=== PATIENT | female | born 1960 | race Caucasian/White ===

== ENCOUNTER → 2022-05-14 10:20 | Outpatient (CLI) | payer OTHER, SELFPAY ==
[2022-05-14 17:54] LABS: Basophils % 0.5 % (0.1-2.0); Eosinophils # 0.1 K/mm3 (0.0-0.4); Eosinophils % 1.7 % (0.1-12.0); Hematocrit 44.9 % (37.0-47.0); Mean Corpuscular HGB Conc 31.1 g/dL (31.8-35.4); Mean Corpuscular Hemoglobin 30.9 pg (27.0-31.2); Mean Corpuscular Volume 99.3 fl (81-99); Mean Platelet Volume 8.7 fl (7.4-10.4); Monocytes # 0.5 K/mm3 (0.1-1.0); Monocytes % 6.1 % (1.7-9.3); Neutrophils # 4.8 K/mm3 (1.8-7.8); Neutrophils % 64.7 % (37.0-80.0); Platelet Count 259 K/mm3 (142-424); Red Blood Count 4.52 M/mm3 (4.20-5.40); Red Cell Distribution Width 14.4 % (11.5-17.5); White Blood Count 7.5 K/mm3 (4.8-10.8)
[2022-05-14 19:14] LABS: Alanine Aminotransferase 129 U/L (12-78); Albumin Level 4.2 g/dl (3.5-5.0); Albumin/Globulin Ratio 1.5 (1.1-1.8); Alkaline Phosphatase 130 U/L (38-126); Anion Gap 11.7 mEq/L (5-15); Aspartate Amino Transferase 99 U/L (14-36); Bilirubin,Total 0.2 mg/dl (0.2-1.3); Blood Urea Nitrogen 15 mg/dl (7-17); Calcium 10.1 mg/dl (8.4-10.2); Carbon Dioxide 28 mmol/L (22.0-30.0); Chloride 102 mmol/L (98-107); Estimated Glomerular Filt Rate 73 ml/min (>60); GFR (African American) 89 ML/MIN (>60); Globulin 2.8 g/dL (1.3-3.2); Glucose 94 mg/dl (74-100); Potassium 4.7 mmoL/L (3.5-5.1); Sodium 137 mmol/L (136-145)
[2022-05-14 19:44] LABS: Thyroid Stimulating Hormone 1.72 uIU/mL (0.465-4.68)
== END ==
PROVIDERS: PCP Nurse Practitioner Family; Visit Provider Nurse Practitioner Family
DX: R53.83 Other fatigue (principal)
CPT/HCPCS: 80053; 84443; 85025

== ENCOUNTER → 2022-06-12 08:21 | Outpatient (CLI) | payer OTHER, SELFPAY ==
--- NOTE | 2022-06-12 08:21 | US_ITS ---
FINAL REPORT CLINICAL HISTORY: elevated liver enzymes FINDINGS: Sonographic images of the right upper quadrant were obtained. The pancreas is partially obscured. There is increased echogenicity the in the liver consistent with fatty infiltration. The gallbladder appears normal without evidence of gallstones.There is no evidence of biliary ductal dilatation.The common duct measures 4mm. Limited images of the right kidney are unremarkable. IMPRESSION: Fatty liver, otherwise unremarkable exam. Reviewed, Interpreted and Dictated by Сергей Weinstein III, MD Transcribed by Maggie Murrieta Authenticated and [facility]
== END ==
PROVIDERS: PCP Nurse Practitioner Family; Visit Provider Nurse Practitioner Family
DX: R74.8 Abnormal levels of other serum enzymes (principal)
CPT/HCPCS: 76705

== ENCOUNTER 2023-07-10 16:17 | Outpatient (CLI) | payer OTHER, SELFPAY ==
[2023-07-10 16:33] LABS: Chloride 104 mmol/L (98-107); Sodium 139 mmol/L (136-145)
[2023-07-10 16:35] LABS: Alanine Aminotransferase 140 U/L (12-78); Alkaline Phosphatase 103 U/L (38-126); Amylase 49 U/L (30-110); Aspartate Amino Transferase 114 U/L (14-36); Bilirubin,Total 0.4 mg/dl (0.2-1.3); Blood Urea Nitrogen 11 mg/dl (7-17); Carbon Dioxide 30 mmol/L (22.0-30.0); Estimated Glomerular Filt Rate 85 ml/min (>60); GFR (African American) 103 ML/MIN (>60)
[2023-07-10 16:36] LABS: Albumin Level 4.1 g/dl (3.5-5.0); Albumin/Globulin Ratio 1.5 (1.1-1.8); Calcium 9.3 mg/dl (8.4-10.2); Chol/HDL Ratio 4.9 (1-3.5); Cholesterol 229 mg/dl (140-200); Globulin 2.8 g/dL (1.3-3.2); Glucose 97 mg/dl (74-100); HDL Cholesterol 47 mg/dl (40-60); Lipase 58 U/L (23-300); Total Protein,Serum 6.9 g/dl (6.3-8.2); Triglycerides 157 mg/dl (30-150); VLDL Cholesterol 31 mg/dL (0-40)
[2023-07-10 16:44] LABS: Basophils % 0.4 % (0.1-2.0); Eosinophils # 0.1 K/mm3 (0.0-0.4); Eosinophils % 1.8 % (0.1-12.0); Hematocrit 44.3 % (37.0-47.0); Hemoglobin 14.9 g/dL (12.2-16.2); Lymphocytes # 1.8 K/mm3 (0.7-4.5); Lymphocytes % 27.4 % (10-50); Mean Corpuscular HGB Conc 33.5 g/dL (31.8-35.4); Mean Corpuscular Hemoglobin 32.6 pg (27.0-31.2); Mean Corpuscular Volume 97.1 fl (81-99); Mean Platelet Volume 8.3 fl (7.4-10.4); Monocytes # 0.4 K/mm3 (0.1-1.0); Monocytes % 5.9 % (1.7-9.3); Neutrophils # 4.2 K/mm3 (1.8-7.8); Neutrophils % 64.5 % (37.0-80.0); Platelet Count 236 K/mm3 (142-424); Red Blood Count 4.56 M/mm3 (4.20-5.40); Red Cell Distribution Width 13.5 % (11.5-17.5); White Blood Count 6.5 K/mm3 (4.8-10.8)
[2023-07-10 16:56] LABS: Direct LDL Cholesterol 127.71 mg/dL (100-129)
[2023-07-10 17:16] LABS: T4 (Thyroxine) 5.7 ug/dl (5.53-11.0); Triiodothryronine (T3) Uptake 36 % (23.5-40.5)
[2023-07-10 17:17] LABS: Free T4 (Free Thyroxine) 0.88 ng/dl (0.78-2.19)
[2023-07-10 17:30] LABS: Thyroid Stimulating Hormone 1.54 uIU/mL (0.465-4.68)
[2023-07-10 20:29] LABS: Hemoglobin A1C 5.4 % (4.0-6.0)
== END 2023-07-10 23:59 ==
LOC: LAB.DROPOF 16:17
PROVIDERS: PCP Nurse Practitioner Family; Visit Provider Nurse Practitioner Family
DX: R53.83 Other fatigue (principal); R06.02 Shortness of breath; R00.2 Palpitations; F32.A Depression, unspecified
CPT/HCPCS: 80053; 80061; 82150; 83036; 83690; 84436; 84439; 84443; 84479; 85025; 86140

== ENCOUNTER 2023-07-16 15:55 | Outpatient (CLI) | payer OTHER, SELFPAY | END 2023-07-16 23:59 | LOC: RT 15:56 | PROVIDERS: PCP Family Medicine; Visit Provider Physician Assistant | DX: R00.2 Palpitations (principal); R06.02 Shortness of breath; R07.89 Other chest pain; R53.83 Other fatigue; E78.5 Hyperlipidemia, unspecified; E66.01 Morbid (severe) obesity due to excess calories; Z68.42 Body mass index [BMI] 45.0-49.9, adult | CPT/HCPCS: 93270 ==

== ENCOUNTER 2023-08-04 08:22 | Outpatient (CLI) | payer OTHER, SELFPAY ==
--- NOTE | 2023-08-04 08:37 | CA_ITS ---
FINAL REPORT TECHNIQUE: Color Doppler, duplex Doppler and bettencourt scale sonography of the bilateral neck arterial vasculature was performed. Velocities were measured in the carotid arteries. Stenosis evaluation based on the validated velocity criteria. CLINICAL HISTORY: DIZZINESS FINDINGS: The peak systolic velocity of the right common carotid artery is 98 cm/s. The peak systolic velocity of the right internal carotid artery is 98 cm/s and end diastolic velocity 23 cm/s. The ICA/CCA ratio is 1.2. A small amount of plaque is present. The right external carotid artery is patent. The right vertebral artery is patent with antegrade flow. The peak systolic velocity of the left common carotid artery is 92 cm/s. The peak systolic velocity of the left internal carotid artery is 102 cm/s and end diastolic velocity 30 cm/s. The ICA/CCA ratio is 1.0. A small amount of plaque is present. The left external carotid artery is patent.The left vertebral artery is patent with antegrade flow. IMPRESSION: Less than 50% bilateral carotid stenoses. Bilateral patent vertebral arteries with antegrade flow. If indicated, CTA or MRA could further evaluate. Reviewed, Interpreted and Dictated by Сергей Weinstein III, MD Transcribed by Priya Farias Authenticated and [facility]
--- NOTE | 2023-08-04 08:37 | CA_ITS ---
APPROVED REPORT EXAM: Comprehensive 2D, Doppler, and color-flow Echocardiogram Director [employer]: Tori Penn RT(R) Ht: 5 ft 3 in Wt: 270lbs BSA: 2.20 BP: 115/62 mmHg Indications: CP, ex smoker, palpitations, fatigue, SOB, obesity, hyperlipidemia, family history of HD, dizziness, anxiety, GERD. 2D Dimensions LA Volume 22.10 mL LA Volume Index 10.05 mL/m2 (M/F) 16-34 EF AP4 58.50 % GL Strain -11.0 % M-Mode Dimensions RVDd 2.27 cm (0.9-2.6) LA Diam 3.24 cm (1.9-4.0) LVDd 4.66 cm (3.5-5.7) LVDs 3.37 cm (3.5-5.7) IVSd 0.72 cm (0.6-1.1) PWd 0.72 cm (0.6-1.1) EF (Teich) 53.70% FS 27.70% EDV (Teich) 100.30 mL ESV (Teich) 46.40 mL LV Diastology E Decel Time 140 (160-240 msec) E/A Ratio 0.9 Mitral Valve MV E Max Rod. 61.0 (40-130 cm/s) MV A Velocity 67.0 (40-130 cm/s) E/A Ratio 0.91 MV PHT 41.0 ms Left Ventricle The left ventricle is normal size. The left ventricular systolic function is normal. The left ventricular ejection fraction is within the normal range. There is normal left ventricular wall thickness. There is normal LV segmental wall motion. The left ventricular diastolic function is normal. LVEF is 55%. Right Ventricle The right ventricle is normal size. The right ventricular systolic function is normal. Atria The left atrium size is normal. The right atrium size is normal. The interatrial septum is not well-visualized. Aortic Valve The aortic valve opens well. There is no aortic valvular stenosis. No aortic regurgitation is present. Mitral Valve The mitral valve is normal in structure. No evidence of mitral valve stenosis. There is no mitral valve regurgitation noted. Tricuspid Valve The tricuspid valve leaflets are thin and pliable. Trace tricuspid regurgitation. There is insufficient TR jet to estimate RVSP. Pulmonic Valve The pulmonary valve is normal in structure. Trace pulmonic regurgitation. Great Vessels The aortic root is normal in size. The ascending aorta is normal in size. IVC is normal in size and collapses >50% with inspiration. Pericardium There is no pericardial effusion. Other Information Study Quality: Fair Conclusion Normal biventricular systolic function. No significant valvular stenosis or regurgitation. Electronically signed by : Adriana Perez MD 08/08/2023 19:42:48
[2023-08-04 09:02] LABS: Anion Gap 11.2 mEq/L (5-15); Blood Urea Nitrogen 11 mg/dl (7-17); Calcium 9.6 mg/dl (8.4-10.2); Carbon Dioxide 30 mmol/L (22.0-30.0); Chloride 104 mmol/L (98-107); Estimated Glomerular Filt Rate 73 ml/min (>60); GFR (African American) 88 ML/MIN (>60); Glucose 108 mg/dl (74-100); Potassium 4.2 mmoL/L (3.5-5.1); Sodium 141 mmol/L (136-145)
== END 2023-08-04 23:59 ==
PROVIDERS: PCP Family Medicine; Visit Provider Physician Assistant
DX: R06.00 Dyspnea, unspecified (principal); R07.89 Other chest pain; R00.2 Palpitations; R42 Dizziness and giddiness; E78.5 Hyperlipidemia, unspecified; R53.83 Other fatigue; E66.01 Morbid (severe) obesity due to excess calories; Z68.42 Body mass index [BMI] 45.0-49.9, adult
CPT/HCPCS: 36415; 80048; 93306; 93880

== ENCOUNTER 2023-08-18 08:20 | Outpatient (CLI) | payer OTHER, SELFPAY ==
[2023-08-18] VITALS (7 sets, daily range): BP systolic 98–125; BP diastolic 58–76; PULSE 60–94; RESP 18; O2SAT 97–99; BMI 47.6
--- NOTE | 2023-08-18 08:20 | CT_ITS ---
APPROVED REPORT Consumer Safety Officer: CLINICAL INDICATION Chest Pain TECHNIQUE Image Acquisition: A 128 slice MDCT scanner (Mopappa View) was used for data acquisition. A noncontrast coronary calcium scan was performed. A CT attenuation threshold of 130 Hounsfield units (HU) was used for the detection of calcium in contiguous voxels of 1 sq mm in area to be counted as individual lesions. Bolus tracking in the ascending aorta with a threshold of 180 HU was performed. Immediately afterwards, ECG synchronized cardiac CT was then performed from the cardiac base to apex using retrospective gating with ECG tube current modulation. A total of 85 mL of Isovue 370 mg/mL contrast medium was administered at 5 mL/sec followed by a saline flush using a biphasic injection protocol. A tube voltage of 120 KVp was used. The patient received the following medications prior to the cardiac CT. 75 mg of oral metoprolol 15 mg of oral ivabradine 0.8 mg of sublingual nitroglycerin The average heart rate at the time of acquisition was 62 bpm and regular. Image Reconstruction Transaxial images were reconstructed at 0.67 mm slide thickness. Data was reviewed interactively on an advanced workstation capable of 2 and 3-dimensional displays in all conventional reconstruction formats, including multiplanar reformations, maximum intensity projections, curved multiplanar reformations, and volume rendered reconstructions. When applicable, selected routine images describing the relevant coronary anatomy and pathology were saved and sent to PACS. Complications None Technical Quality Overall image quality was good. Coronary artery opacification was adequate. Total DLP (Dose-Length Product) is 2810.6 mGy-cm. The reported value represents the total of one or more individual components during the CT acquisition of this date and at this time, and as such, the same value may appear in more than one CT report depending on the interpreting/reporting physicians. COMPARISON None FINDINGS CT Coronary Calcium Scoring LMA (Left Main Artery) = 0 LAD (Left Anterior Descending) = 6 LCX (Left Coronary Circumflex) = 0 RCA (Right Coronary Artery) = 0 Total Calcium Score = 6 using the AJ-130 method. The observed calcium score of 6 is at 66th percentile for subjects of the same age, sex, and race/ethnicity. The interpretation of the calcium heart score is based on the following continuum*: 0 = no calcified plaque detected (risk of coronary artery disease is very low ??? less than 5%) 1-10 = calcium detected in extremely minimal levels (risk of coronary diseases is still low ??? less than 10%) 11-100 = mild levels of plaque detected with certainty (mild or minimal narrowing of heart arteries is likely) 101-400 = definite,at least moderate levels of plaque detected (relatively high risk of a heart attack within 3-5 years) >401-999 = extensive levels of plaque detected (high risk of heart attack, high levels of vascular disease are present, high likelihood of at least one significant coronary narrowing) *The calcium heart score quantifies the burden of coronary calcification/plaque in the coronary arteries. The calcium heart score is not able to evaluate the presence or burden of non-calcified (i.e. soft) plaque. There is no identifiable calcification in the aortic valve, mitral annulus or mitral valve, pericardium, or myocardium. Coronary CT Angiography The coronary arterial system is left dominant. Quantitative Stenosis Grading: Left Main (LM): The left main originates normally from the left sinus of Valsalva. The LM trifurcates into the left anterior descending artery, ramus intermedius, and left circumflex artery. The LM is patent with no evidence of atherosclerosis. Left Anterior Descending (LAD) and Diagonal Branches: The LAD gives off 2 diagonal branches. There is mild calcification in the proximal LAD at the bifurcation with the diagonal branch, but without evidence of luminal stenosis. There is no evidence of LAD-myocardial bridge. Ramus-intermedius (RI): The RI is patent. Left Circumflex (LCX) and Obtuse Marginals (OM): The LCX gives off 2 Obtuse Marginal (OM) branches. The LCX gives rise to the posterolateral branch. The LCX and its branches are patent with no evidence of atherosclerosis. Right Coronary Artery (RCA): The RCA is a small caliber vessel. The RCA originates normally from the right sinus of Valsalva. The RCA and its branches are patent with no evidence of atherosclerosis. Non-Coronary Cardiac Findings: Analysis of the left ventricular (LV) structure and function was performed after 3-D reconstruction of the LV from axial images, with user-corrected automatic contouring for assessment of LV volumes and user-defined reconstruction from oblique planes for measurement of 3-D cardiac structure and function. -The left ventricle systolic function is normal (LVEF 61%) -There is no left atrial appendage filling defect. Two right pulmonary veins and two left pulmonary veins drain normally into the left atrium. -No pericardial thickening or calcification. -Central and branch pulmonary arteries in the [id number] are unremarkable. -Thoracic aorta within the visualized thoracic aortic-branches in the [id number] is unremarkable. Extracardiac Structures No significant extra-cardiac findings. Note, however, that this study is focused on the cardiac findings. IMPRESSION -Presence of coronary calcification with an Agatston score = 6 using the AJ-130 method. -The observed calcium score of 6 is at 66th percentile for subjects of the same age, sex, and race/ethnicity. -No evidence of significant flow-limiting atherosclerosis of the coronary arteries. -CAD-RADS 1. Management recommendations per ACC/AHA guidelines*, as clinically appropriate. *Recommendations: CAD RADS 0: Reassurance. Consider non-atherosclerotic causes of chest pain. CAD RADS 1: Consider non-atherosclerotic causes of chest pain. Consider preventive therapy and risk factor modification. CAD RADS 2: Consider non-atherosclerotic causes of chest pain. Consider preventive therapy and risk factor modification, particularly for patients with nonobstructive plaque in multiple segments. CAD RADS 3: Consider further functional testing. Consider symptom-guided anti-ischemic and preventive pharmacotherapy as well as risk factor modification per published guideline statements. CAD RADS 4A: Consider further functional testing or invasive coronary angiography with revascularization per published guideline statements. Consider symptom-guided anti-ischemic and preventive pharmacotherapy as well as risk factor modification per published guideline statements. CAD RADS 4B: Invasive coronary angiography recommended with revascularization per published guideline statements. Consider symptom-guided anti-ischemic and preventive pharmacotherapy as well as risk factor modification per published guideline statements. CAD RADS 5: Consider invasive angiography and/or viability assessment with revascularization per published guideline statements. Consider symptom-guided anti-ischemic and preventive pharmacotherapy as well as risk factor modification per published guideline statements. CRITICAL RESULT None COMMUNICATION Per this written report The coronary and cardiac findings of this CCTA were reviewed, reported, and signed by Hai Perez MD ([employer]) Conclusion Electronically signed by : Adriana Perez MD 08/25/2023 13:09:57
[2023-08-18] MEDS: METOPROLOL TARTRATE 50MG TABLET *IVABRADINE+METOPROLOL REGIMINE 50 MG PO (08:35)
[2023-08-18] MEDS: METOPROLOL TARTRATE 25MG TABLET *IVABRADINE+METOPROLOL REGIMINE 25 MG PO (08:35)
[2023-08-18] MEDS: IVABRADINE HCL 7.5MG TABLET *IVABRADINE+METOPROLOL REGIMINE 15 MG PO (08:35)
[2023-08-18] MEDS: METOPROLOL TARTRATE 5MG/5ML VIAL *IVABRADINE+METOPROLOL REGIMINE 5 MG IV ×2 (09:34→09:42)
[2023-08-18] MEDS: NITROGLYCERIN 0.4MG SL TABLET 0.800000000000000044 MG SL (09:34)
[2023-08-18] MEDS: SODIUM CHLORIDE 0.9% 10ML SYR (RAD ONLY) 10 ML IV (09:56)
[2023-08-18] MEDS: 0.9 % SODIUM CHLORIDE 50 ML VIAL IV (09:56)
[2023-08-18] MEDS: IOPAMIDOL-370 (76%);100ML BOTTLE 85 ML IV (09:56)
== END 2023-08-18 10:34 | disposition home or self-care (01) ==
PROVIDERS: PCP Family Medicine; Visit Provider Physician Assistant
DX: R06.00 Dyspnea, unspecified (principal); R07.89 Other chest pain; R00.2 Palpitations; E78.5 Hyperlipidemia, unspecified; R53.83 Other fatigue; E66.01 Morbid (severe) obesity due to excess calories; Z68.42 Body mass index [BMI] 45.0-49.9, adult
CPT/HCPCS: 75571; 75574; Q9967

== ENCOUNTER 2024-04-06 09:07 | Emergency (ER) | payer OTHER, SELFPAY ==
[2024-04-06] VITALS (8 sets, daily range): BP systolic 118–132; BP diastolic 57–74; PULSE 80–99; RESP 16–20; TEMP 36.6–36.8; O2SAT 94–99; BMI 47.8
--- NOTE | 2024-04-06 09:32 | CT_ITS ---
FINAL REPORT TECHNIQUE: Thin section axial CT with IV contrast supplemented with multiplanar reconstruction under CT angiogram protocol. 3-D reconstructions were performed. This study was performed with techniques to keep radiation doses as low as reasonably achievable (ALARA). Individualized dose reduction techniques using automated exposure control or adjustment of mA and/or kV according to the patient''s size were employed. CLINICAL HISTORY: Dizziness, headache, vision changes FINDINGS: The distal vertebral, basilar and distal internal carotid arteries have an unremarkable appearance. No aneurysm is seen. Major intracranial vessels are patent without significant stenosis. Reviewed, Interpreted and Dictated by Сергей Weinstein III, MD Transcribed by Noris Young Authenticated and [facility]
--- NOTE | 2024-04-06 09:32 | CT_ITS ---
FINAL REPORT TECHNIQUE: Thin section axial CT with IV contrast supplemented with multiplanar reconstruction under CT angiogram protocol. This study was performed with techniques to keep radiation doses as low as reasonably achievable (ALARA). Individualized dose reduction techniques using automated exposure control or adjustment of mA and/or kV according to the patient''s size were employed. NASCET criteria was utilized during interpretation. CLINICAL HISTORY: Dizziness, headache, vision changes FINDINGS: Aortic arch: Arch shows no significant narrowing. Great vessel origins are widely patent. Right carotid: No significant stenosis is seen of the cervical common or internal carotid artery. Left carotid: No significant stenosis is seen of the cervical common or internal carotid artery. Vertebral: The vertebral arteries are codominant. No significant stenosis is present. IMPRESSION: No significant stenosis. Reviewed, Interpreted and Dictated by Сергей Weinstein III, MD Transcribed by Noris Young Authenticated and [facility]
--- NOTE | 2024-04-06 09:32 | CT_ITS ---
FINAL REPORT CLINICAL HISTORY: Dizziness, headache, vision changes FINDINGS: Axial images of the head were obtained without contrast. Coronal reformatted images were also obtained.This study was performed with techniques to keep radiation doses as low as reasonably achievable (ALARA). Individualized dose reduction techniques using automated exposure control or adjustment of mA and/or kV according to the patient's size were employed. There is no evidence of intracranial hemorrhage or mass. The ventricular size is within normal limits. There is no evidence of shift of the midline structures. No abnormal extra axial fluid collection is identified. No skull abnormality is seen on the bone window images. IMPRESSION: No acute intracranial abnormality. Reviewed, Interpreted and Dictated by Сергей Weinstein III, MD Transcribed by Noris Young Authenticated and . [facility]
[2024-04-06] MEDS: KETOROLAC 30MG/ML VIAL 15 MG IV (09:43)
[2024-04-06] MEDS: 0.9 % SODIUM CHLORIDE 1000ML 1,000 ML 999 ML IV (09:43)
--- NOTE | 2024-04-06 09:43 | ECG_ITS ---
APPROVED REPORT Exam: Resting ECG HR:71 bpm ECG Measurements Heart Rate 71 AXES AZ 138 P 57 QRSd 87 QRS 21 QT 379 T 55 QTc 402 Conclusion SINUS RHYTHM Electronically signed by : SHAY VAZQUEZ, 04/07/2024 14:56:54
[2024-04-06] MEDS: droPERidol 5MG/2ML VIAL 2.5 MG IM (09:44)
[2024-04-06 09:47] LABS: Basophils % 0.7 % (0.1-2.0); Eosinophils # 0.1 K/mm3 (0.0-0.4); Eosinophils % 1.9 % (0.1-12.0); Hematocrit 43.8 % (37.0-47.0); Hemoglobin 14.4 g/dL (12.2-16.2); Lymphocytes # 1.6 K/mm3 (0.7-4.5); Lymphocytes % 23.6 % (10-50); Mean Corpuscular HGB Conc 32.9 g/dL (31.8-35.4); Mean Corpuscular Hemoglobin 31.7 pg (27.0-31.2); Mean Corpuscular Volume 96.3 fl (81-99); Mean Platelet Volume 7.2 fl (7.4-10.4); Monocytes # 0.4 K/mm3 (0.1-1.0); Monocytes % 5.6 % (1.7-9.3); Neutrophils # 4.6 K/mm3 (1.8-7.8); Neutrophils % 68.4 % (37.0-80.0); Platelet Count 225 K/mm3 (142-424); Red Blood Count 4.54 M/mm3 (4.20-5.40); Red Cell Distribution Width 13.4 % (11.5-17.5); White Blood Count 6.7 K/mm3 (4.8-10.8)
[2024-04-06 09:50] LABS: Chloride 101 mmol/L (98-107); Potassium 4.1 mmoL/L (3.5-5.1); Sodium 137 mmol/L (136-145)
[2024-04-06 09:53] LABS: Anion Gap 10.1 mEq/L (5-15); Blood Urea Nitrogen 11 mg/dl (7-17); Carbon Dioxide 30 mmol/L (22.0-30.0); Creatinine Clearance Estimated 48 mL/min (50-200); Estimated Glomerular Filt Rate 85 ml/min (>60); GFR (African American) 103 ML/MIN (>60)
[2024-04-06 09:54] LABS: Calcium 9.4 mg/dl (8.4-10.2); Glucose 113 mg/dl (74-100)
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
[2024-04-06] MEDS: IOPAMIDOL-370 (76%);100ML BOTTLE 80 ML IV (10:25)
[2024-04-06] MEDS: SODIUM CHLORIDE 0.9% 10ML SYR (RAD ONLY) 10 ML IV (10:25)
[2024-04-06] MEDS: 0.9 % SODIUM CHLORIDE 50 ML VIAL 40 ML IV (10:25)
[2024-04-06] MEDS: diphenhydrAMINE 50MG/ML VIAL 25 MG IV (10:35)
--- NOTE | 2024-04-06 10:37 | PC.NURSE ---
Patient returned from ct scan. Patient crying stating she felt anxious and weird. Spoke with . New order for Benadryl. This nurse calmed patient, provided pillow and blanket and adjusted bed.
[2024-04-06 14:41] LABS: HIV (1&2) Antibody Rapid NONREACTIVE (NONREACTIVE)
[2024-04-07 05:14] LABS: HCV Ab Non Reactive (Non Reactive)
== END 2024-04-06 12:16 | disposition home or self-care (01) ==
PROVIDERS: Emergency Provider Student in an Organized Health Care Education/Training Program; PCP Family Medicine
DX: R51.9 Headache, unspecified (principal); R42 Dizziness and giddiness; H53.8 Other visual disturbances
CPT/HCPCS: 70450; 70496; 70498; 80048; 85025; 86803; 87389; 93005; 96361; 96372; 96374; 96375; 99284; J1200; J1790; J1885; J7030; Q9967

== ENCOUNTER 2024-07-25 11:45 | Outpatient (CLI) | payer OTHER, SELFPAY | END 2024-07-25 23:59 | disposition home or self-care (01) | LOC: LAB.DROPOF 07-26 09:15 | PROVIDERS: PCP Podiatrist; Visit Provider Podiatrist | DX: B07.0 Plantar wart (principal) | CPT/HCPCS: 87070; 87205 ==

== ENCOUNTER 2024-09-21 12:58 | Outpatient (CLI) | payer OTHER, SELFPAY ==
--- NOTE | 2024-09-21 13:01 | XR_ITS ---
FINAL REPORT CLINICAL HISTORY: Chronic left shoulder pain, worse in the last few months, nki FINDINGS: Frontal and maxillary views of the left shoulder were obtained. There is no prior exam for comparison. There is no acute fracture or acute dislocation. There is mild degenerative joint disease. There is a small calcification adjacent to the superior glenoid. This may be an osteophyte. Soft tissues are otherwise unremarkable. IMPRESSION: No acute osseous abnormality. Mild degenerative joint disease. Consider MRI if pain persists. Authenticated and ERN
== END 2024-09-21 23:59 | disposition home or self-care (01) ==
LOC: RAD 12:59
PROVIDERS: PCP Family Medicine; Visit Provider Physician Assistant
DX: M25.512 Pain in left shoulder (principal)
CPT/HCPCS: 73030

== ENCOUNTER 2025-02-21 08:43 | Emergency (ER) | payer OTHER, SELFPAY ==
--- OUTSIDE RECORDS SUMMARY | 2024-12-03 17:30 | XMS_ITS ---
Author Organization [facility] Address [address] [place] [address] Care Team Providers Care Vertical Lathe Operator Name Role Phone Migration, Provider Unavailable Unavailable [...] Active Encounters Encounter Location Date Provider Diagnosis [facility] [address] [place] [address] 12/03/2024 Provider Migration GERD 530.81 ; Allergic [...] *Please review and pick correct strength-formulation from [employer] Mediaspan options. If intended option is not shown, discontinue and re-order from Quick Search* Progress Notes * Lissa ALTAMIRANO ADOB:[birth year] (65 yo F)Acc No.[id number]:12/03/2024 Patient: Miguel shelley Lissa A Provider: :1960 A ge:64 Y S ex:Female Date:12/03/2024 Address:[address] [place] [address] Subjective: * Chief Complaints[facility] * Medications: T akingPROzac 80 MG CAPSULE 1 CAP(S) ORALLY ONCE A DAY , Notes to Pharmacist: *Please review and pick correct strength-formulation from [employer] Mediaspan options. If intended option is not shown, discontinue and re-order from Quick Search*Spironolactone 100 MG Tablet 1 tab(s) orally once a day Taking PROzac 80 MG CAPSULE 1 CAP(S) ORALLY ONCE A DAY , Notes to Pharmacist: *Please review and pick correct strength-formulation from [employer] Mediaspan options. If intended option is not shown, [...] Electronic signature of Prov ider Migration on 02/21/2025 at 08:51 AM EDT Sign off status: Pending * Provider: Date: 0 12/03/2024 Generated for Yumiko mauricio/Marge/Armenitting on: 0 02/21/2025 08:51 AM EDT
[2025-02-21 08:48] VITALS: BP 140/84; PULSE 101; O2SAT 99
--- OUTSIDE RECORDS SUMMARY | 2025-02-21 08:51 | XMS_ITS | Patient Health Record ---
Author Organization [facility] Address [address] [place] [address] Care Team Providers Care Sewer Connector Name Role Phone Migration, Provider Unavailable Unavailable Allergies Allergen (clinical drug ingredient) Drug/Non Drug Allergy documented on EMR Reaction Allergy Type Onset Date Status Penicillin rash Drug Allergy Active Reason For Referral No Information Medications Medication SIG (Take, Route, Frequency, Duration) [...] review and pick correct strength-formulati on from [employer] options. If intended option is not shown, discontinue and re-order from Quick Search* Active Spironolactone 100 MG Tablet 1 tab(s) orally once a day; Duration: 30 day(s) Active Nasonex 50 MCG/INH SPRAY 2 SPRAY(S) INTRANASALLY ONCE A DAY; Duration: 30 DAY(S) *Please review and pick correct strength-formulati on from [employer] options. If intended option is not shown, discontinue and re-order from Quick Search* Active Social History Social History Social History Social Info Question Answer Notes Tobacco Use Current smoking status: Current Smoker How often do you smoke?: Every day PPD 1 Number of years? 5-10 years Additional Details Category Social Info Options Details Social History Occupational exposure none Travel outside [place] no Alcohol no Sexually active yes Drug use no Exercise no Home smoke detector use: yes Caffeine no Marital Status Problems Problem Type SNOMED Code ICD Code Onset Dates Problem Status W/U Status Risk Notes Problem Herpes labialis (8737065) Herpes labialis (054.2) Active confirmed Problem Acne vulgaris (50660395) Acne vulgaris (706.1) Active confirmed Problem Gastroesophageal reflux disease (520327650) GERD (530.81) Active confirmed Problem Moderate recurrent major depression (19422794) Major Depressive Disorder, Recurrent Episode, Moderate Degree (296.32) Active confirmed Encounters Encounter Location Date Provider Diagnosis [address] [address] 12/03/2024 Provider Migration GERD 530.81 ; Allergic rhinitis due to allergen 477.8 and Herpes labialis 054.2 Assessments Encounter Date Diagnosis (ICD Code) Assessment Notes Treatment Notes Treatment Clinical Notes Section Notes 12/03/2024 Allergic rhinitis due to allergen (ICD9-CM - 477.8) 12/03/2024 GERD (ICD9-CM - 530.81) 12/03/2024 Herpes labialis (ICD9-CM - 054.2) Plan Of Treatment No Information Insurance Providers Payer Name Payer Address Payer Phone Subscriber Number Group Number Insured Name Patient Relationship to Insured Coverage Start Date Coverage End Date [employer] Attn Claims Department [address] [address] [place] [address] [employer] [phone] [id number] Lissa Altamirano Self - patient is the insured Medical (General) History Medical History History ICD Code Arthritis Colon Polyps Depression, follows with Dr. Ryan GERD Surgical History Surgery Date(Month/Year) Tonsillectomy 1974
--- OUTSIDE RECORDS SUMMARY | 2025-02-21 08:51 | XMS_ITS | Clinical Summary ---
Author Organization [facility] Address [address] [place] [address] Care Team Providers Care Mailing Specialist Name Role Phone Matias Beltre MD Primary Care Provider [phone] Allergies Active Allergy Reactions Criticality Noted Date Comments Penicillins 12/15/2022 Medications * This document contains information received from the source organization and may not represent a complete record from that organization. LINZESS 72 MCG capsule capsule 0 Active omeprazole (priLOSEC) 20 MG capsule 0 Active Symbicort 160-4.5 MCG/ACT inhaler Inhale 2 puffs 2 (Two) Times a Day. 2 Active diazePAM (VALIUM) 5 MG tablet Take 1 tablet by mouth Daily As Needed. 2 Active fluticasone (FLONASE) 50 MCG/ACT nasal spray 1 spray by Each Nare route Daily. 2 Active montelukast (SINGULAIR) 10 MG tablet Take 1 tablet by mouth Daily. 2 Active propranolol (INDERAL) 20 MG tabletIndicatio ns:Generalized anxiety disorder Take 1 tablet by mouth 3 (Three) Times a Day As Needed (Anxiety). 90 tablet 2 2 Active Additional Information Patient not taking.Reported on 12/15/2022 FLUoxetine (PROzac) 40 MG capsuleIndicati ons:Severe episode of recurrent major depressive disorder, without psychotic features,Genera lized anxiety disorder TAKE 1 CAPSULE BY MOUTH ONCE DAILY 30 capsule 2 Active vitamin D (ERGOCALCIFEROL ) 1.25 MG (77609 UT) capsule capsule 3 Active Multivitamin tablet tablet 3 Active Semaglutide-Andry ght Management 0.25 MG/0.5ML solution auto-injectorIn dications:Morbi d obesity with BMI of 40.0-44.9, adult,GRIFFIN (obstructive sleep apnea) Inject 0.25 mg under the skin into the appropriate area as directed 1 (One) Time Per Week. 2 mL 1 3 Active Active Problems Problem Noted Date Diagnosed Date Morbid obesity with BMI of 40.0-44.9, adult 11/27 Assessment & Plan (12/16/2022 10:06 PM EDT): Patient's (Body mass index is 46.77 kg/m .) indicates that they are morbidly/severely obese (BMI > 40 or > 35 with obesity - related health condition) with health conditions that include obstructive sleep apnea . Weight is worsening. BMI is above average; BMI management plan is completed. We discussed low calorie, low carb based diet program, portion control, increasing exercise, joining a fitness center or start home based exercise program, consulting a Bariatric surgeon, and pharmacologic options including Wegovy . -Trial of Wegovy -Discussed diet changes and exercise options -Referral to bariatric/weight loss clinic per patient request Precordial pain 12/15/2022 Assessment & Plan (12/16/2022 10:11 PM EDT): Nuclear stress test and echocardiogram for further evaluation. GRIFFIN (obstructive sleep apnea) 12/15/2022 Assessment & Plan (12/16/2022 10:07 PM EDT): Home sleep study revealed mild GRIFFIN with baseline AHI of 11.4. We will start PAP therapy. CPAP order sent to [facility]. Patient will follow-up for a 31 to 90- day compliance visit. Immunizations Immunization Administration Dates Next Due Flu Vaccine Quad PF >36MO 05/19/2018 Fluzone (or Fluarix & Flulaval for VFC) >6mos Tdap 06/02/2008 Family History Medical History Relation Name Comments Anxiety disorder Father Depression Father Anxiety disorder Mother Depression Mother Relation Name Status Comments Father Mother Social History Tobacco Use Types Packs/Day Years Used Date Smoking Tobacco: Every Day Cigarettes Alcohol Use Standard Drinks/Week Comments Never 0 (1 standard drink = 0.6 oz pur e alcohol) PHQ-2 Answer Date Recorded Retired PHQ-9: Brief Depression Severity Measure Score 25 12/10/2021 Abuse Screen Answer Date Recorded Unsafe at Home or Work/School Not on file Feels Threatened by Someone? Not on file 02/2023 Does Anyone Keep You from Co ntacting Others or Doint Things Outside the Home? Not on file 04/06/2023 Physical Sign of Abuse Present Not on file 1 Housing Stability Answer Date Recorded Current Living Arrangements Not on file 02/2023 Potentially Unsafe Housing Conditions Not on lb e 04/06/2023 Family and Community Support Answer Surendra e Recorded Help with Day-to-Day Activities Not on file 04/06/2023 Lonely or Isolated Not on file 04/06/2023 Employment Answer Date Recorded Do you want help finding or keeping work or a jovanni b? Not on file 04/06/2023 Disabilities Answer Date Recorded Concentrating, Remembering, or Making Decisions Difficulty Not on file 04/06/2023 Doing Errands Independently Difficulty Not on fi le 04/06/2023 Education Answer Date Recorded Help with school or training? Not on file Preferred Language Not on file 04/06/2023 Comments Unknown Sex and Gender Information Value Date Recorded Sex Assigned at Not on file Legal Sex Female 12:12 PM EDT Gender Identity Not on file Sexual Orientation Not on file Last Filed Vital Signs Vital Sign Reading Time Taken Comments Blood Pressure 114/78 12/15/2022 10:48 AM EDT Pulse 89 12/15/2022 10:48 AM EDT Temperature - - Respiratory Rate - - Oxygen Saturation 98% 12/15/2022 10:48 AM EDT Inhaled Oxygen Concentration - - Weight 120 kg (264 lb) 12/15/2022 10:48 AM EDT Height 160 cm (5' 3 ) 12/15/2022 10:48 AM EDT Body Mass Index 46.77 12/15/2022 10:48 AM EDT Plan of Treatment Health Maintenance Due Date Last Done Comments Annual Gynecologic Pelvic an d Breast Exam 1962 Pneumococcal Vaccine 50+ (1 of 2 - PCV) 1981 06/02/2008 MAMMOGRAM 2002 COLOGUARD 2007 COLON CANCER SCREENING 5 YEA R SIGMOIDOSCOPY 2007 COLONOSCOPY 2007 COL[address]ECTAL CANCER SCREENING 2007 CT COLONOGRAPHY 2007 FECAL OCCULT BLOOD TEST 2007 FIT Testing (1 year) 2007 ZOSTER VACCINE (1 of 2) 01/07/2012 TDAP/TD VACCINES (2 - Td or Tdap) 06/02/2018 008 ANNUAL PHYSICAL 08/04/2019 HEPATITIS C SCREENING 08/04/2019 COVID-19 Vaccine (4 - 2023-2 5 season) 2024 07/10/2021, 12/11/2020, 11/13/2020 INFLUENZA VACCINE 03/29/2025 08/04/2019, , 04/28/2010, Additional history exists Insurance [facility] Care Teams Mailing Specialist Relationship Specialty Start Date End Date Matias Beltre MD [address] [place] [address] [place] [id number] PCP - General Family Medicine 10/27/24
[2025-02-21 08:55] VITALS: BP 140/84; PULSE 105; RESP 16; TEMP 37.1; O2SAT 99; BMI 47.2
[2025-02-21 09:00] VITALS: BP 140/84; BP 150/96; PULSE 100; PULSE 105; RESP 16; TEMP 37.1; O2SAT 96; O2SAT 99
[2025-02-21 09:02] VITALS: O2SAT 99
--- NOTE | 2025-02-21 09:14 | XR_ITS ---
FINAL REPORT CLINICAL HISTORY: Shortness of breath FINDINGS: 2 views of the chest were obtained . The heart is normal in size. The mediastinum is within normal limits. There are nodular opacities in the left midlung which could be infectious or inflammatory. Neoplasm not excluded. There is no effusion or pneumothorax. Osseous structures are unremarkable. IMPRESSION: Nodular opacities in the left midlung which could be infectious or inflammatory. Neoplasm not excluded. Reviewed, Interpreted and Dictated by Ana Cristina Galarza MD Transcribed by Sydnie Jameson Authenticated and [facility]
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
[2025-02-21 09:24] LABS: Adenovirus,PCR Not Detected (NotDetected); Chlamydophila Pneumoniae, PCR Not Detected (NotDetected); Coronavirus 19, PCR Not Detected (NotDetected); Coronovirus HKU1,PCR Not Detected (NotDetected); Influenza A, PCR Not Detected (NotDetected); Influenza AH1, 2009 Not Detected (NotDetected); Influenza AH1, PCR Not Detected (NotDetected); Influenza AH3,PCR Not Detected (NotDetected); Influenza B, PCR Not Detected (NotDetected); Mycoplasma Pneumoniae, PCR Not Detected (NotDetected); Parainfluenza 1, PCR Not Detected (NotDetected); Parainfluenza 2, PCR Not Detected (NotDetected); Parainfluenza 3, PCR Not Detected (NotDetected); Parainfluenza 4, PCR Not Detected (NotDetected)
[2025-02-21 09:42] LABS: Hematocrit 42.2 % (37.0-47.0); Hemoglobin 14.0 g/dL (12.2-16.2); Immature Granulocytes % 0.3 %; Mean Corpuscular HGB Conc 33.2 g/dL (31.8-35.4); Mean Corpuscular Hemoglobin 31.7 pg (27.0-31.2); Mean Corpuscular Volume 95.5 fl (81-99); Nucleated Red Blood Cells % 0 %; Platelet Count 226 K/mm3 (142-424); Red Blood Count 4.42 M/mm3 (4.20-5.40); Red Cell Distribution Width-SD 47.9 fL; White Blood Count 6.6 K/mm3 (4.8-10.8)
[2025-02-21 09:50] LABS: Albumin Level 4.5 g/dl (3.5-5.0); Chloride 107 mmol/L (98-107); Sodium 142 mmol/L (136-145)
--- NOTE | 2025-02-21 09:50 | ECG_ITS ---
APPROVED REPORT Exam: Resting ECG HR:96 bpm ECG Measurements Heart Rate 96 AXES [place] 141 P 56 QRSd 95 QRS 5 QT 352 T 39 QTc 405 Conclusion SINUS RHYTHM NORMAL ECG UNCONFIRMED REPORT Normal sinus rhythm. No ST elevation or depression. QTc of 405 Electronically signed by : LIOR SILVER, 02/21/2025 15:47:11
[2025-02-21 09:51] LABS: Potassium 4.2 mmoL/L (3.5-5.1)
[2025-02-21 09:53] LABS: Alanine Aminotransferase 40 U/L (12-78); Anion Gap 12.2 mEq/L (5-15); Aspartate Amino Transferase 41 U/L (14-36); Blood Urea Nitrogen 15 mg/dl (7-17); Carbon Dioxide 27 mmol/L (22.0-30.0); Creatinine Clearance Estimated 48 mL/min (50-200); Creatinine,Serum 0.60 mg/dl (0.52-1.04); Estimated Glomerular Filt Rate 101 ml/min (>60); GFR (African American) 122 ML/MIN (>60)
[2025-02-21 09:54] LABS: Albumin/Globulin Ratio 1.4 (1.1-1.8); Alkaline Phosphatase 75 U/L (38-126); Bilirubin,Total 0.4 mg/dl (0.2-1.3); Calcium 9.1 mg/dl (8.4-10.2); Globulin 3.3 g/dL (1.3-3.2); Glucose 109 mg/dl (74-100); Total Protein,Serum 7.8 g/dl (6.3-8.2)
[2025-02-21 09:58] LABS: D-Dimer 0.61 ug/mL (0.0-0.5)
[2025-02-21 10:06] LABS: Troponin I < 0.01 ng/ml (0.00-0.034)
[2025-02-21 10:06] LABS: Microscopic, Urine URINE MICROSCOPIC (MICROSCOPIC)
[2025-02-21 10:10] LABS: Bilirubin,Urine Negative (Negative); Color,Urine YELLOW (Yellow); Glucose,Urine (UA) Negative (Negative); Ketones,Urine Negative (Negative); Leukocyte Esterase,Urine Negative (Negative); PH,Urine 6.0 (5.0-8.5); Protein,Urine Negative (Negative); Specific Gravity, Urine 1.020 (1.005-1.030); Urobilinogen,Urine 0.2 EU/dl (0.2)
[2025-02-21 10:24] LABS: Bacteria,Urine 1+ /lpf
[2025-02-21 10:24] LABS: Thyroid Stimulating Hormone 2.22 uIU/mL (0.465-4.68)
[2025-02-21 10:29] LABS: Free T4 (Free Thyroxine) 0.91 ng/dl (0.78-2.19)
[2025-02-21 11:51] VITALS: BP 150/96; PULSE 96; RESP 16; TEMP 37.1; O2SAT 100
== END 2025-02-21 11:51 | disposition home or self-care (01) ==
PROVIDERS: Emergency Provider Student in an Organized Health Care Education/Training Program; PCP Family Medicine
DX: J18.9 Pneumonia, unspecified organism (principal); E78.5 Hyperlipidemia, unspecified; R06.02 Shortness of breath; J45.909 Unspecified asthma, uncomplicated; I25.10 Atherosclerotic heart disease of native coronary artery without angina pectoris
CPT/HCPCS: 0223U; 71046; 80053; 81001; 84439; 84443; 84484; 85025; 85378; 93005; 99285

== ENCOUNTER 2025-03-02 18:44 | Emergency (ER) | payer OTHER, SELFPAY ==
--- OUTSIDE RECORDS SUMMARY | 2024-12-03 17:30 | XMS_ITS ---
Author Organization [facility] Address [address] [place] [address] Care Team Providers Care Dental Specialist Name Role Phone Migration, Provider Unavailable Unavailable Allergies Allergen (clinical drug ingredient) Drug/Non Drug Allergy documented on EMR Reaction Allergy Type Onset Date Status Penicillin rash Drug Allergy Active REASON FOR VISIT Multum To Medispan Conversion Encounter Medications Medication SIG (Take, Route, Frequency, Duration) Notes Start Date End Date Status Acyclovir 800 MG Tablet 1 tab(s) orally 5 times a day then TID; Duration: 30 day(s) 02/21/2013 Active PriLOSEC OTC 20 MG Tablet Delayed Release 1 cap(s) orally once a day; Duration: 30 day(s) Active PROzac 80 MG CAPSULE 1 CAP(S) ORALLY ONCE A DAY; Duration: 30 DAY(S) *Please review and pick correct strength-formulati on from Medispan options. If intended option is not shown, discontinue and re-order from Quick Search* Active Spironolactone 100 MG Tablet 1 tab(s) orally once a day; Duration: 30 day(s) Active Nasonex 50 MCG/INH SPRAY 2 SPRAY(S) INTRANASALLY ONCE A DAY; Duration: 30 DAY(S) *Please review and pick correct strength-formulati on from Medispan options. If intended option is not shown, discontinue and re-order from Quick Search* Active Encounters Encounter Location Date Provider Diagnosis [facility] [address] [place] [address] 12/03/2024 Provider Migration GERD 530.81 ; Allergic rhinitis due to allergen 477.8 and Herpes labialis 054.2 Assessments Encounter Date Diagnosis (ICD Code) Assessment Notes Treatment Notes Treatment Clinical Notes Section Notes 12/03/2024 GERD (ICD9-CM - 530.81) 12/03/2024 Allergic rhinitis due to allergen (ICD9-CM - 477.8) 12/03/2024 Herpes labialis (ICD9-CM - 054.2) Plan Of Treatment Medication Medication Name Sig Start Date Stop Date Notes Acyclovir 800 MG Tablet 1 tab(s) orally 5 times a day then TID; Duration: 30 day(s) 02/21/2013 PriLOSEC OTC 20 MG Tablet Delayed Release 1 cap(s) orally once a day; Duration: 30 day(s) Nasonex 50 MCG/INH SPRAY 2 SPRAY(S) INTRANASALLY ONCE A DAY; Duration: 30 DAY(S) *Please review and pick correct strength-formulation from Flixpressspan options. If intended option is not shown, discontinue and re-order from Quick Search* Progress Notes * Lissa ALTAMIRANO ADOB:[birth year] (65 yo F)Acc No.[id number]:12/03/2024 Patient: Miguel shelley Lissa A Provider: :1960 A ge:64 Y S ex:Female Date:12/03/2024 Address:[address] [place] [address] Subjective: * Chief Complaints: [facility] * Medications: T akingPROzac 80 MG CAPSULE 1 CAP(S) ORALLY ONCE A DAY , Notes to Pharmacist: *Please review and pick correct strength-formulation from Flixpressspan options. If intended option is not shown, discontinue and re-order from Quick Search*Spironolactone 100 MG Tablet 1 tab(s) orally once a day Taking PROzac 80 MG CAPSULE 1 CAP(S) ORALLY ONCE A DAY , Notes to Pharmacist: *Please review and pick correct strength-formulation from Flixpressspan options. If intended option is not shown, discontinue and re-order from Quick Search*Taking Spironolactone 100 MG Tablet 1 tab(s) orally once a day * Allergies: P enicillin: rash - Allergy Assessment: * Assessment: 1. G ERD - 530.81 (Primary) 2 . A llergic rhinitis due to allergen - 477.8? 3. H erpes labialis - 054.2 Plan: * Treatment: 2. A llergic rhinitis due to allergen Continue Nasonex SPRAY, 50 MCG/INH, 2 SPRAY(S), INTRANASALLY, ONCE A DAY, 30 DAY(S), 1, Refills 6, Notes to Pharmacist: *Please review and pick correct strength-formulation from Medispan options. If intended option is not shown, discontinue and re-order from Quick Search*. 3. H erpes labialis Start Acyclovir Tablet, 800 MG, 1 tab(s), orally, 5 times a day then TID, 30 day(s), 120, Refills 3. * Electronic signature of Prov ider Migration on 03/02/2025 at 06:59 PM EDT Sign off status: Pending * Provider: Date: 0 12/03/2024 Generated for Yumiko mauricio/Marge/Armenitting on: 0 03/02/2025 06:59 PM EDT
[2025-03-02 18:56] LABS: Microscopic, Urine URINE MICROSCOPIC (MICROSCOPIC)
--- NOTE | 2025-03-02 18:56 | [facility].EDGENADL ---
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 I approved the treatment and management plan for this patient's care in the emergency department, thus performing a substantive portion of the medical decision making. William Pope MD Critical Care <NATALYA Dillard - Last Filed: 03/02/25 21:24> Critical Care Time Critical Care Time: No
[2025-03-02 18:57] VITALS: BP 135/77; PULSE 103; RESP 18; TEMP 36.9; O2SAT 98; BMI 47.8
[2025-03-02 18:58] LABS: Color,Urine YELLOW (Yellow); Glucose,Urine (UA) Negative (Negative); Ketones,Urine Negative (Negative); Leukocyte Esterase,Urine Negative (Negative); PH,Urine 6.0 (5.0-8.5); Protein,Urine Negative (Negative); Specific Gravity, Urine >= 1.030 (1.005-1.030); Urobilinogen,Urine 0.2 EU/dl (0.2)
--- OUTSIDE RECORDS SUMMARY | 2025-03-02 18:59 | XMS_ITS | Patient Health Record ---
Author Organization [facility] Address [address] [place] [address] Care Team Providers Care Ditch Repairer Name Role Phone Migration, Provider Unavailable Unavailable [...] review and pick correct strength-formulati on from [employer] options. If intended option is not shown, discontinue and re-order from Quick Search* Active Spironolactone 100 MG Tablet 1 tab(s) orally once a day; Duration: 30 day(s) Active Nasonex 50 MCG/INH SPRAY 2 SPRAY(S) INTRANASALLY ONCE A DAY; Duration: 30 DAY(S) *Please review and pick correct strength-formulati on from [employer] options. If intended option is not shown, [...] W/U Status Risk Notes Problem Herpes labialis (3175208) Herpes labialis (054.2) Active confirmed Problem Acne vulgaris (97696389) Acne vulgaris (706.1) Active confirmed Problem Gastroesophageal reflux disease (750425091) GERD (530.81) Active confirmed Problem Moderate recurrent major depression (74982423) Major Depressive Disorder, Recurrent Episode, Moderate Degree (296.32) Active confirmed Encounters Encounter Location Date Provider Diagnosis [address] [address] 12/03/2024 Provider Migration GERD 530.81 ; Allergic [...] [employer] Attn Claims Department [address] [address] [place] [address] [facility] [phone] [id number] Lissa Altamirano Self - patient is the insured Medical (General) History Medical History History ICD Code Arthritis Colon Polyps Depression, follows with Dr. Ryan GERD Surgical History Surgery Date(Month/Year) Tonsillectomy 1974
[2025-03-02 19:00] VITALS: BP 123/77; PULSE 91; O2SAT 98
--- OUTSIDE RECORDS SUMMARY | 2025-03-02 19:00 | XMS_ITS | Clinical Summary ---
Author Organization [facility] Address [address] [place] [address] Care Team Providers Care Clay Carman Name Role Phone Matias Beltre MD Primary Care Provider [phone] Allergies Active Allergy Reactions Criticality Noted Date [...] Active vitamin D (ERGOCALCIFEROL ) 1.25 MG (18798 UT) capsule capsule 3 Active Multivitamin tablet [...] start PAP therapy. CPAP order sent to [facility]. Patient will follow-up for a 31 to [...] C SCREENING 08/04/2019 COVID-19 Vaccine (4 - 2024-2 6 season) 2025 07/10/2021, 12/11/2020, 11/13/2020 INFLUENZA VACCINE 03/29/2025 08/04/2019, , 04/28/2010, Additional history exists Insurance [facility] Care Teams Clay Carman Relationship Specialty Start Date End Date Matias Beltre MD [address] [place] [address] [place] [id number] PCP - General Family Medicine 10/27/24
--- NOTE | 2025-03-02 19:02 | XR_ITS ---
PROCEDURE INFORMATION: Exam: XR Chest Exam date and time: 03/02/2025 7:11 PM Age: 65 years old Clinical indication: Cough; Additional info: Cough, HX of previous pna TECHNIQUE: Imaging protocol: Radiologic exam of the chest. Views: 1 view. COMPARISON: CR XR CHEST 2V 02/21/2025 9:11 AM FINDINGS: Lungs: No significant change in the left mid lung opacities. Lung lozano otherwise clear. Pleural spaces: Unremarkable. No pleural effusion. No pneumothorax. Heart/Mediastinum: Unremarkable. No cardiomegaly. Bones/joints: Unremarkable. IMPRESSION: Stable chest x-ray with no interval change in the left mid lung opacities which may be pneumonia but developing mass not excluded. Advise further assessment with chest CT to confirm or exclude mass.
--- NOTE | 2025-03-02 19:02 | CT_ITS ---
PROCEDURE INFORMATION: Exam: CT Head Without Contrast Exam date and time: 03/02/2025 7:11 PM Age: 65 years old Clinical indication: Pain; Headache not specified; Additional info: LEMOS, n/v TECHNIQUE: Imaging protocol: Computed tomography of the head without contrast. Radiation optimization: All CT scans at this facility use at least one of these dose optimization techniques: automated exposure control; mA and/or kV adjustment per patient size (includes targeted exams where dose is matched to clinical indication); or iterative reconstruction. COMPARISON: CT ANGIO HEAD 04/06/2024 10:25 AM FINDINGS: Brain: No intracranial hemorrhage. Mild atrophic changes of the ventricles and subarachnoid spaces. Mild chronic small-vessel ischemic changes noted. No mass, mass effect or midline shift. Intracranial atherosclerotic changes are noted. Cerebral ventricles: See Brain finding. Paranasal sinuses: Visualized sinuses are unremarkable. No fluid levels. Mastoid air cells: Visualized mastoid air cells are well aerated. Bones: Unremarkable. No acute fracture. Soft tissues: Unremarkable. IMPRESSION: No acute intracranial abnormality. Chronic changes as above.
[2025-03-02 19:05] LABS: Bilirubin,Urine 1+ (Negative)
[2025-03-02 19:15] LABS: Bacteria,Urine Trace /lpf; Squamous Epithelial Cell,Urine Occasional #/hpf (0-5); WBC,Urine Occasional #/hpf (0-3)
[2025-03-02 19:30] VITALS: BP 112/69; PULSE 94; O2SAT 99
[2025-03-02 20:02] LABS: Coronavirus 19, PCR Not Detected (NotDetected); Influenza A, PCR Not Detected (NotDetected); Influenza B, PCR Not Detected (NotDetected)
--- NOTE | 2025-03-02 20:17 | CT_ITS ---
PROCEDURE INFORMATION: Exam: CT Chest With Contrast; Diagnostic Exam date and time: 03/02/2025 9:01 PM Age: 65 years old Clinical indication: Condition or disease; Other: Rule out mass/pneumonia TECHNIQUE: Imaging protocol: Diagnostic computed tomography of the chest with contrast. Radiation optimization: All CT scans at this facility use at least one of these dose optimization techniques: automated exposure control; mA and/or kV adjustment per patient size (includes targeted exams where dose is matched to clinical indication); or iterative reconstruction. Contrast material: ISOVUE; Contrast volume: 75 ml; Contrast route: IV; COMPARISON: CR XR CHEST PORTABLE 03/02/2025 7:11 PM FINDINGS: Lungs: A cluster of multinodular opacities noted in the posterolateral superior segment left lower lobe. The aggregate of these opacities measures 3.4 x 2.6 x 2.3 cm. The largest individual nodular density measures 12 mm. Lung lozano otherwise clear. Pleural spaces: Unremarkable. No pneumothorax. No pleural effusion. Heart: Unremarkable. No cardiomegaly. No pericardial effusion. Coronary arteries: No significant coronary artery calcifications. Lymph nodes: Unremarkable. No enlarged lymph nodes. Vasculature: Unremarkable. No aortic aneurysm. Bones/joints: Unremarkable. No acute fracture. Soft tissues: Unremarkable. IMPRESSION: A cluster of multinodular opacities noted in the posterolateral superior segment left lower lobe. The aggregate of these opacities measures 3.4 x 2.6 x 2.3 cm. The largest individual nodular density measures 12 mm. This finding corresponds to the abnormality on chest x-ray. Finding favored to represent some type of atypical infectious or inflammatory process especially if clinical findings to suggest infection. The possibility of tumor while thought less likely but not entirely excluded. Advise clinical assessment and follow-up including follow-up chest x-ray in [address] in 3 months. The need further assessment such as CT PET or biopsy can be determined clinically.
[2025-03-02 20:21] LABS: Hematocrit 42.0 % (37.0-47.0); Hemoglobin 14.0 g/dL (12.2-16.2); Immature Granulocytes % 0.3 %; Mean Corpuscular HGB Conc 33.3 g/dL (31.8-35.4); Mean Corpuscular Hemoglobin 31.4 pg (27.0-31.2); Mean Corpuscular Volume 94.2 fl (81-99); Nucleated Red Blood Cells % 0 %; Platelet Count 252 K/mm3 (142-424); Red Blood Count 4.46 M/mm3 (4.20-5.40); Red Cell Distribution Width-SD 45.2 fL; White Blood Count 8.8 K/mm3 (4.8-10.8)
[2025-03-02] MEDS: DEXAMETHASONE 4MG/ML 1ML VIAL 10 MG IV (20:21)
[2025-03-02] MEDS: PROCHLORPERAZINE 10MG/2ML VIAL 10 MG IV (20:21)
[2025-03-02] MEDS: KETOROLAC 15MG/ML VIAL 15 MG IV (20:21)
[2025-03-02 20:29] LABS: Benzodiazepines Screen,Urine Negative ng/ml (<200)
[2025-03-02 20:30] LABS: Amphetamine/Metha Screen,Urine Negative ng/ml (<1000); Barbiturates Screen,Urine Negative ng/ml (<200)
[2025-03-02 20:34] LABS: Methadone Screen,Urine Negative ng/ml (<300); Opiate Screen,Urine Negative ng/ml (<300)
[2025-03-02 20:35] LABS: Phencyclidine Screen,Urine Negative ng/ml (<25)
[2025-03-02 20:43] LABS: Alanine Aminotransferase 54 U/L (12-78); Albumin Level 4.6 g/dl (3.5-5.0); Albumin/Globulin Ratio 1.4 (1.1-1.8); Alkaline Phosphatase 80 U/L (38-126); Anion Gap 14.2 mEq/L (5-15); Aspartate Amino Transferase 47 U/L (14-36); Bilirubin,Total 0.7 mg/dl (0.2-1.3); Blood Urea Nitrogen 10 mg/dl (7-17); Calcium 9.7 mg/dl (8.4-10.2); Carbon Dioxide 30 mmol/L (22.0-30.0); Chloride 100 mmol/L (98-107); Creatinine Clearance Estimated 48 mL/min (50-200); Creatinine,Serum 0.60 mg/dl (0.52-1.04); Estimated Glomerular Filt Rate 101 ml/min (>60); GFR (African American) 122 ML/MIN (>60); Globulin 3.4 g/dL (1.3-3.2); Glucose 91 mg/dl (74-100); Lipase 43 U/L (23-300); Magnesium 2.1 mg/dl (1.6-2.3); Potassium 4.2 mmoL/L (3.5-5.1); Sodium 140 mmol/L (136-145); Total Protein,Serum 8.0 g/dl (6.3-8.2)
[2025-03-02] MEDS: 0.9 % SODIUM CHLORIDE 50 ML VIAL IV (21:01)
[2025-03-02] MEDS: IOPAMIDOL-370 (76%);100ML BOTTLE 80 ML IV (21:01)
[2025-03-02] MEDS: SODIUM CHLORIDE 0.9% 10ML SYR (RAD ONLY) 10 ML IV (21:01)
[2025-03-02 21:31] VITALS: BP 139/74; PULSE 97; RESP 16; TEMP 37; O2SAT 97
== END 2025-03-02 21:32 | disposition home or self-care (01) ==
PROVIDERS: Physician Assistant; Emergency Provider Emergency Medicine; PCP Family Medicine
DX: G43.909 Migraine, unspecified, not intractable, without status migrainosus (principal); R91.1 Solitary pulmonary nodule
CPT/HCPCS: 70450; 71045; 71260; 80053; 80307; 80320; 81001; 83690; 83735; 85025; 87636; 96374; 96375; 99284; 99285; J0780; J1100; J1200; J1885; Q9967